=== PATIENT | male | born 1940 | race Caucasian/White ===

== ENCOUNTER → 2017-10-27 | Outpatient (CLI) | payer MEDICARE, BC | END | disposition home or self-care (01) | LOC: KCIC MRI 09:13 | DX: M19.071 Primary osteoarthritis, right ankle and foot (principal); M25.471 Effusion, right ankle; I13.0 Hypertensive heart and chronic kidney disease with heart failure and stage 1 through stage 4 chronic kidney disease, or unspecified chronic kidney disease; I50.9 Heart failure, unspecified; N18.9 Chronic kidney disease, unspecified | CPT/HCPCS: 73721 ==

== ENCOUNTER → 2019-06-09 | Day surgery (SDC) | payer MEDICARE, BC ==
[~2019-06-09] MED LIST: ASPI-482 PO; FOLI0.8T3 PO; FURO20TA3 PO; HYDR12.58 PO; HYDROmorphone 2 MG/ML VIAL IV PRN; IV RINGERS,LACTATED 1000ML 1,000 ML IV ONE; IV RINGERS,LACTATED 1000ML 1,000 ML IV SCH; LIDOCAINE 2% PF 5 ML VIAL. ONE; LISI-334 PO; LOSA-73 PO; LOSA100T14 PO; METO-239 PO; METO25TA2 PO; MORPHINE SULFATE 2 MG/ML VIAL. IV PRN; MYCO500T PO; OMEP40CA45 PO; ONDANSETRON PF 4 MG/2 ML VIAL. IV PRN; PROCHLORPERAZINE 10 MG/2 ML VIAL. IV PRN; PROPOFOL 40 ML IV ONE; ZOLP10TA4 PO; fentaNYL PF VIAL 100 MCG/2 ML VIAL IV PRN
[2019-06-09 10:11] VITALS: BP 135/76
--- NOTE | 2019-06-12 15:52 | PATHOLOGY ---
[facility] Accession Number: [id number] . 01 Material submitted: . PART A: rectum - RECTAL POLYP PART B: colon - SIGMOID POLYP. Modifiers: sigmoid PART C: colon - TRANSVERSE COLON POLYP. Modifiers: transverse . 01 Clinical history: . Positive Cologuard . 02 Diagnosis: A. Colorectal biopsy, rectal polyp: - Hyperplastic polyp. . B. Colon biopsy, sigmoid colon polyp: - Tubular adenoma. . C. Colon biopsies, transverse colon polyp: - Tubular adenoma. (JPM:so; 06/12/2019) S 06/12/2019 1427 Local . 02 Comment: There is no high grade dysplasia or evidence of malignancy. (JPM:so; 06/12/2019) . 02 Electronically signed: . Manjeet Mao MD, Pathologist NPI- [id number] . 01 Gross description: . A. The specimen is received in formalin, labeled "Shelton Calles, rectal polyp". Received is a segment of pale esquivel soft tissue measuring 0.6 cm in maximum dimensions. The specimen is submitted entirely in cassette A1. . B. The specimen is received in formalin, labeled "Shelton Calles, sigmoid polyp". Received is a segment of pale esquivel soft tissue measuring 0.6 cm in maximum dimensions. The specimen is submitted entirely in cassette B1. . C. The specimen is received in formalin, labeled "Shelton Calles, transverse colon polyp". Received are three segments of pale esquivel soft tissue ranging in size from 0.4 to 0.5 cm in maximum dimensions. The specimen is submitted entirely in cassette C1. (CAA; 06/09/2019) QAC/QAC 06/09/2019 1603 Local . 02 Pathologist provided ICD-10: K62.1, D12.5, D12.3 . 02 CPT . 488376, 286132, 701212 Specimen Comment: A courtesy copy of this report has been sent to [phone] Specimen Comment: [id number] Specimen Comment: Report sent to / DR PATTERSON Performed at: 01 [facility] [address], [place] [id number] MD Maykel Cortez MD Phone: [phone] Performed at: 02 [facility] [address], [place] [id number] MD Manjeet Mao MD Phone: [phone]
== END | disposition home or self-care (01) ==
LOC: ENDOS 07:58
PROVIDERS: ATTEND Internal Medicine Gastroenterology
DX: R19.5 Other fecal abnormalities (principal); D12.5 Benign neoplasm of sigmoid colon; K62.1 Rectal polyp; K22.2 Esophageal obstruction; D64.9 Anemia, unspecified; K29.70 Gastritis, unspecified, without bleeding; K44.9 Diaphragmatic hernia without obstruction or gangrene; K21.9 Gastro-esophageal reflux disease without esophagitis; I10 Essential (primary) hypertension; Z86.010 Personal history of colon polyps; Z85.828 Personal history of other malignant neoplasm of skin; Z80.3 Family history of malignant neoplasm of breast; Z91.040 Latex allergy status; Z82.49 Family history of ischemic heart disease and other diseases of the circulatory system
CPT/HCPCS: 43235; 43450; 45385; 88305; J2001; J2704